=== PATIENT | female | born 1960 | race Two or more races ===

== ENCOUNTER → 2023-05-01 | Outpatient (CLI) | payer MEDICAID ==
[~2023-05-01] VITALS: Ht 152.4 cm; Wt 90.7 kg
[~2023-05-01] MED LIST: REGADENOSON 0.4 MG/5 ML SYRG IV ONE
== END | disposition home or self-care (01) ==
LOC: XYW 08:35
PROVIDERS: ATTEND Specialist
DX: R06.02 Shortness of breath (principal); R00.2 Palpitations
CPT/HCPCS: 78452; 93017; A9500